=== PATIENT | male | born 1990 | race African-American/Black ===

== ENCOUNTER 2018-10-11 18:03 | Emergency (ER) | payer MEDICAID ==
[~2018-10-11] VITALS: Ht 175.3 cm; Wt 90.5 kg
[2018-10-11] MEDS ORDERED: FLUORESCEIN SODIUM 1MG/STRIP LEFTEYE ONE (20:45)
[2018-10-11 21:20] VITALS: BP 108/71
== END 2018-10-11 21:26 | disposition home or self-care (01) ==
LOC: ER 18:03
DX: H10.023 Other mucopurulent conjunctivitis, bilateral (principal)
CPT/HCPCS: 99283

== ENCOUNTER 2018-10-12 11:12 | Emergency (ER) | payer MEDICAID ==
[~2018-10-12] VITALS: Ht 175.3 cm; Wt 91.0 kg
[2018-10-12] MEDS ORDERED: FLUORESCEIN SODIUM 1MG/STRIP BOTHEYE ONE (12:00)
[2018-10-12] MEDS ORDERED: TETRACAINE 0.5% OPHTH DROPS 4ML BOTHEYE ONE (12:00)
[2018-10-12] MEDS ORDERED: ACETAMINOPHEN 325MG TABLET PO ONE (13:45)
[2018-10-12 14:16] VITALS: BP 130/88
== END 2018-10-12 14:17 | disposition home or self-care (01) ==
LOC: ER 11:12
DX: H10.89 Other conjunctivitis (principal); Z91.018 Allergy to other foods
CPT/HCPCS: 99284; J7040

== ENCOUNTER 2020-04-21 19:09 | Emergency (ER) | payer MEDICAID ==
[~2020-04-21] VITALS: Ht 175.3 cm; Wt 75.0 kg
[2020-04-21 22:05] VITALS: BP 108/78
== END 2020-04-21 22:42 | disposition home or self-care (01) ==
LOC: ER 19:09
DX: M21.332 Wrist drop, left wrist (principal); R03.0 Elevated blood-pressure reading, without diagnosis of hypertension
CPT/HCPCS: 29125; 73100; 99283

== ENCOUNTER 2022-08-24 11:18 | Emergency (ER) | payer MEDICAID, OTHER ==
[~2022-08-24] VITALS: Ht 172.7 cm; Wt 80.0 kg
[2022-08-24 11:30] VITALS: BP 122/83
== END 2022-08-24 14:16 | disposition home or self-care (01) ==
LOC: ER 11:46
DX: Z53.21 Procedure and treatment not carried out due to patient leaving prior to being seen by health care provider (principal)

== ENCOUNTER 2022-10-09 07:53 | Emergency (ER) | payer OTHER ==
[~2022-10-09] VITALS: Ht 182.9 cm; Wt 91.0 kg
[2022-10-09 07:56] VITALS: BP 125/84
== END 2022-10-09 12:22 | disposition left against medical advice (07) ==
LOC: ER 07:53
DX: Z53.21 Procedure and treatment not carried out due to patient leaving prior to being seen by health care provider (principal)
CPT/HCPCS: 99281

== ENCOUNTER 2023-01-11 14:21 | Emergency (ER) | payer OTHER ==
[~2023-01-11] VITALS: Ht 175.3 cm; Wt 75.0 kg
[2023-01-11 14:37] VITALS: BP 118/71; PULSE 90; RESP 20; TEMP 97.9; O2SAT 99
[2023-01-11] MEDS ORDERED: IBUPROFEN 600MG TABLET PO ONE (17:00)
[2023-01-11] MEDS ORDERED: IBUP-2029 MT (17:36)
== END 2023-01-11 18:29 | disposition home or self-care (01) ==
LOC: ER 14:21
DX: M79.672 Pain in left foot (principal)
CPT/HCPCS: 73630; 99283; Z7610